=== PATIENT | male | born 2000 | race Caucasian/White ===

== ENCOUNTER 2019-01-16 16:21 | Outpatient (CLI) | payer BC ==
--- NOTE | 2019-01-16 16:50 | RAD ---
LEFT KNEE: 01/16/19 Three views. HISTORY: Knee pain. Joint spaces appear normal. No fracture or osseous abnormality. No evidence of joint effusion. IMPRESSION: Unremarkable left knee. POS: [facility]
== END 2019-01-16 16:22 | disposition home or self-care (01) ==
LOC: SCSRAD 16:21
PROVIDERS: ATTEND Pediatrics
DX: M25.562 Pain in left knee (principal)